=== PATIENT | female | born 1995 | race American Indian/Alaskan Native ===

== ENCOUNTER 2022-07-28 16:18 | Emergency (ER) | payer SELFPAY ==
--- NOTE | 2022-07-28 21:42 | Emergency Department Report ---
ED Headache HPI - General Chief Complaint: Headache Stated Complaint: HEADACHE,EYE SIGHT Time Seen by Provider: 07/28/22 21:13 Source: patient Exam Limitations: other (Poor historian) - History of Present Illness Initial Comments: Patient is a 26-year-old female who presents with a headache that is been going on for 3 weeks intermittently and now daily for the last 2 days during which time she is also had some rhinorrhea and myalgias. No sore throat or cough. Son recent with cold symptoms. No other ill contacts. Son tested negative for COVID x1. Patient denies any visual changes focal for slurred speech or dysphagia. Mom states there is been no change in her mental status throughout this time. No history of migraines and has never been needed to see for headache. Note that patient is a very vague historian. Allergies/Adverse Reactions: Allergies No Known Allergies Allergy (Verified 07/28/22 22:27) Home Medications: Ambulatory Orders Naproxen [EC-Naproxen] 375 mg PO BID #20 tab 07/28/22 ED Review of Systems ROS: Stated complaint: HEADACHE,EYE SIGHT Other details as noted in HPI Comment: All other systems reviewed and negative Constitutional: denies: chills, diaphoresis Eyes: denies: eye pain, eye discharge, vision change ENT: congestion. denies: ear pain, throat pain, dental pain, epistaxis Respiratory: denies: cough, orthopnea, shortness of breath, SOB with exertion Cardiovascular: denies: chest pain, palpitations, edema Endocrine: denies: intolerance to cold, intolerance to heat, unexplained weight gain, unexplained weight loss Gastrointestinal: denies: nausea, vomiting, diarrhea Genitourinary: denies: urgency, dysuria, frequency, hematuria Musculoskeletal: denies: back pain, joint swelling Skin: denies: rash Neurological: denies: weakness, numbness, paresthesias, confusion, abnormal gait, vertigo Psychiatric: denies: anxiety, depression Hematological/Lymphatic: denies: easy bleeding, easy bruising ED Past Medical Hx - Past Medical History Previous Medical History?: No - Surgical History Past Surgical History?: No - Family History Family history: no significant - Social History Smoking Status: Current Every Day Smoker Substance Use Type: Marijuana - Medications Home Medications: Home Medications Medication Instructions Recorded Confirmed Last Taken Type Naproxen [EC-Naproxen] 375 mg PO BID #20 tab 07/28/22 Unknown Rx ED Physical Exam - General Limitations: No Limitations General appearance: alert, in no apparent distress - Head Head exam: Present: atraumatic, normocephalic, normal inspection - Eye Eye exam: Present: normal appearance, PERRL, scleral icterus, conjunctival injection. Absent: nystagmus Pupils: Present: normal accommodation - ENT ENT exam: Present: normal orophraynx (Clear postnasal drainage), mucous membranes moist, TM's normal bilaterally, other (Marked turbinate edema bilaterally with clear rhinorrhea) - Neck Neck exam: Present: normal inspection, full ROM. Absent: tenderness, meningismus - Respiratory Respiratory exam: Present: normal lung sounds bilaterally. Absent: respiratory distress, wheezes, rales - Cardiovascular Cardiovascular Exam: Present: regular rate, normal rhythm, normal heart sounds - GI/Abdominal GI/Abdominal exam: Present: soft. Absent: distended - Neurological Exam Neurological exam: Present: alert, oriented X3, CN II-XII intact, normal gait, reflexes normal. Absent: motor sensory deficit - Psychiatric Psychiatric exam: Present: normal affect, normal mood - Skin Skin exam: Present: warm, dry, intact ED Course Vital Signs 07/28/22 07/29/22 16:39 00:08 Temperature 98.3 F Pulse Rate 98 H 76 Respiratory 14 12 Rate Blood Pressure 120/67 119/63 [Right] O2 Sat by Pulse 100 Oximetry - Reevaluation(s) Reevaluation #1: 07/28/22 23:34 Patient's pain 2 out of 10 after IV fluids, Toradol, Benadryl. Anxious to go home. ED Medical Decision Making - Medical Decision Making Headache. Likely URI related but she does state she was having pain prior to URI symptoms. We will give her primary care to follow-up with. - Differential Diagnosis Headache. URI. Rhinitis. Critical care attestation.: If time is entered above; I have spent that time in minutes in the direct care of this critically ill patient, excluding procedure time. ED Disposition Clinical Impression: Rhinitis, Headache Disposition: 01 HOME / SELF CARE / HOMELESS Is pt being admited?: No Condition: Stable Instructions: General Headache Without Cause, Nonallergic Rhinitis Additional Instructions: Anti-inflammatories as prescribed. Flonase. Guaifenesin 1200 mg extended release twice daily. Warm compresses to the sinuses. Warm salt water gargles. Normal saline nasal spray. Follow-up with primary care as referred. Prescriptions: Naproxen [EC-Naproxen] 375 mg PO BID #20 tab Referrals: DENISSE BENTLEY MD [Staff Physician] - 3-5 Days Forms: Work/School Release Form(ED) Time of Disposition: 23:40
[2022-07-28] MEDS ORDERED: KETOROLAC 30 MG/1 ML INJ IV ONE (22:27)
[2022-07-28] MEDS ORDERED: SODIUM CHLORIDE 0.9% 1000 ML 1,000 ML IV ONE (22:27)
[2022-07-28] MEDS ORDERED: diphenhydrAMINE 50 MG/ML VIAL IV ONE (22:27)
[2022-07-29 00:09] VITALS: BP 119/63
== END 2022-07-29 00:09 | disposition home or self-care (01) ==
LOC: ED 16:18
DX: J00 Acute nasopharyngitis [common cold] (principal); R51.9 Headache, unspecified; F17.200 Nicotine dependence, unspecified, uncomplicated; F12.90 Cannabis use, unspecified, uncomplicated
CPT/HCPCS: 96361; 96374; 96375; 99282; J1200; J1885; J7030; 99283